=== PATIENT | female | born 1970 | race Asian ===

== ENCOUNTER 2021-07-31 12:05 | Outpatient (CLI) | payer OTHER ==
--- NOTE | 2021-07-31 12:52 | CARDIAC PROCEDURE NOTE ---
Stress Test Report Service Date: 07/31/21 Service Time: 12:30 Ordering Provider: June Randolph Indication for Test: Assess episodes of shortness of breath, sometimes associated with chest pressure. Significant Medical History: Gracia reports a history of "pre-diabetes" with borderline elevated HbA1c for about 5 years, as well as hysterectomy at age 40 followed by symptomatic premature menopause. She reported at a recent primary provider visit that for approximately 3 months she has had intermittent episodes of difficulty breathing, more troubling when occurring at rest, but also experienced during her regular walking. She describes this as a feeling of air hunger with a sensation of chest pressure and possibly, epigastric discomfort. Typically she recovers within 5 to 15 minutes of resting. Over a similar interval she has not ed a slight reduction in toleration of walking up hills, with increased shortness of breath. She does time the onset of the occurrence of these symptom episodes to a higher level of psychosocial stress at home, with her 30-year-old disabled son whose behavior is becoming more difficult to manage. Cardiac Risk Factors: As above, positives include pre-diabetes for about 5 years and likely premature menopause. She denies hypertension, hyperlipidemia, family history of coronary heart disease in close relative and has never been a tobacco smoker. Type of Stress Test: Exercise Treadmill Test (ETT) Procedure: -Exercise Treadmill Test- After signing informed consent, the patient performed treadmill exercise using a Mariano protocol. The patient exercised for 9 minutes 23 seconds and achieved a peak heart rate of 171 (102 percent predicted maximum heart rate for age), and an estimated workload of 10.8 METS. The test was terminated due to fatigue/shortness of breath. Resting heart rate: 69 Peak heart rate: 171 Normal response to exercise. Resting BP: 119/82 Peak BP: 157/82 Normal BP response to exercise. Rhythm during exercise: Sinus rhythm throughout. Symptoms: She described mild chest tightness and some difficulty breathing in early stage 2, but as she continued exercising these symptoms became less evid ent. EKG at rest showed normal sinus rhythm, normal in all aspects. EKG at peak stress showed J-point depression with upsloping ST segments, NOT meeting diagnostic criteria for ischemia. In Recovery heart rate and blood pressure rapidly and normally returned toward baseline levels. No imaging was ordered with this stress test. IZurdo MD, was present throughout this treadmill stress test and supervised it in its entirety. Summary: 1) Exercise tolerance well above average for age as evidenced by MARCELLE of -24.3%. 2) Normal resting EKG. 3) Adequate level of exercise was achieved on this treadmill stress test. 4) Normal BP response to exercise. 5) No ischemic changes by EKG criteria were seen at peak stress. 6) No imaging was ordered with this test. CONCLUSIONS: 1) Reassuringly low risk ETT, with exercise capacity well above average for age. 2) She experienced transient symptoms reminiscent of those that prompted the study, but without EKG evidence of inducible ischemia.
== END 2021-07-31 12:06 | disposition home or self-care (01) ==
LOC: DI 12:05
PROVIDERS: ATTEND Nurse Practitioner Family
DX: R07.9 Chest pain, unspecified (principal); R73.03 Prediabetes
CPT/HCPCS: 93016; 93017; 93018

== ENCOUNTER 2023-11-12 10:44 | Outpatient (CLI) | payer OTHER ==
--- NOTE | 2023-11-12 12:16 | Ultrasound Report ---
PROCEDURE: Abdomen Limited INDICATIONS: ABD APIN TECHNIQUE: Real-time focused scanning was performed of the abdomen, with image documentation. COMPARISONS: None. FINDINGS: Liver: Liver is normal in size and homogeneous in echotexture. Gallbladder: No gallstones, sludge, wall thickening or pericholecystic edema. Biliary ducts: Intrahepatic bile ducts are non-dilated. Extrahepatic bile duct caliber measures 4.5 mm. Normal is 6-7 mm or less in diameter, or 10 mm or less post-cholecystectomy. Pancreas: Visualized portions of the pancreas are sonographically normal. Right kidney: Normal in size and echotexture. Right kidney measures 9.5 cm long. No hydronephrosis o r nephrolithiasis. No solid masses. No complex renal cystic lesions which require follow-up. IVC: Intrahepatic inferior vena cava is patent. Miscellaneous: No free abdominal fluid. IMPRESSION: No cause for patient's symptoms is identified. Normal right upper quadrant ultrasound. Reviewed by: Edu Johnson MD on 11/12/2023 12:15 PM PDT Approved by: Edu Johnson MD on 11/12/2023 12:15 PM PDT Station ID: [id number]
== END 2023-11-12 10:45 | disposition home or self-care (01) ==
LOC: DI 10:44
PROVIDERS: ATTEND Student in an Organized Health Care Education/Training Program
DX: R10.9 Unspecified abdominal pain (principal)